=== PATIENT | male | born 1980 | race Asian ===

== ENCOUNTER 2022-05-23 20:55 | Emergency (ER) | payer SELFPAY ==
[~2022-05-23] VITALS: Ht 152.4 cm; Wt 72.6 kg
[2022-05-23 21:18] VITALS: BP 134/70
--- NOTE | 2022-05-23 21:21 | NUR ---
TO LOBBY A/W BED AMBULATORY
--- NOTE | 2022-05-23 21:50 | NUR ---
PT AMBULATED TO ED 12, AVULSION TO RT INDEX FINGER, S/P TOUCHED SAW BLADE AT [id number], DENIES HAVING TETANUS VACCINE, BLEEDING CONTROLLED. DENIES ANY MEDICAL HISTORY, NKDA
[2022-05-23] MEDS ORDERED: BACI1PAC6 TP (22:13)
[2022-05-23] MEDS ORDERED: BACITRACIN OINT 500 UNITS/GM PKT TP ONE (22:15)
--- NOTE | 2022-05-23 22:47 | NUR ---
Patient discharged with v/s stable. Written and verbal after care instructions given and explained. Patient alert, oriented and verbalized understanding of instructions. Ambulatory with steady gait. All questions addressed prior to discharge. ID band removed. Patient advised to follow up with PMD. Rx SENT TO PHARMACY. Patient educated on indication of medication including possible reaction and side effects. Opportunity to ask questions provided and answered.
[2022-05-23 22:48] VITALS: BP 132/70
== END 2022-05-23 22:47 | disposition home or self-care (01) ==
LOC: MED 20:55
DX: S61.300A Unspecified open wound of right index finger with damage to nail, initial encounter (principal); Z79.899 Other long term (current) drug therapy; W45.8XXA Other foreign body or object entering through skin, initial encounter; Y93.89 Activity, other specified; Y92.89 Other specified places as the place of occurrence of the external cause; Y99.8 Other external cause status
CPT/HCPCS: 90471; 90715; 99283